=== PATIENT | female | born 1950 | race Caucasian/White ===

== ENCOUNTER 2019-02-26 10:02 | Outpatient (CLI) | payer MEDICARE ==
--- NOTE | 2019-02-26 11:37 | MRI ---
MRI LUMBAR SPINE NONCONTRAST: lumbar spine noncontrast: HISTORY: Lumbar radiculopathy. Low back pain with left leg numbness and pain. COMPARISON: None. FINDINGS: Appropriate T1 marrow signal intensity of the lumbar vertebra. Lumbar spine vertebral body height is maintained. There is no fracture. There is heterogeneous T1 and T2 signal intensity on the right aspect of the L3 vertebral body, compatible with atypical hemangioma. Hemangioma extends into the rig ht pedicle. Appropriate signal intensity of the paraspinal muscles and visualized solid organs. 1 cm left renal c yst. 0.8 cm T2 hyperintensity in the right hemipelvis, of uncertain etiology and significance. 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 Conus medullaris terminates at the T12-L1 disc space. T12-L1:Adequate disc hydration. No significant central canal stenosis or significant neural foraminal narrowing. L1-L2:Adequate disc hydration. No significant central canal stenosis or significant neural foraminal narrowing. L2-L3:Adequate disc hydration. Broad-based disc bulge without significant posterior disc abnormality. Mild ligament flavum thickening and facet hypertrophy. Minimal central canal stenosis. Mild bilateral foraminal narrowing due to disc material. L3-L4:Mild loss of disc space height. Broad-based disc bulge, ligament flavum thickening and facet hy pertrophy result in mild central canal stenosis. There is mild flattening of the ventral thecal sac. There is a T2 and STIR hyperintensity along the posterior midline annulus compatible with an zeb ular fissure. Mild right neural foraminal narrowing. Mild to moderate left neural foraminal narrowing. L4-L5:Mild loss of disc space height. Broad-based disc bulge, ligament flavum thickening and facet hy pertrophy result in mild central canal stenosis. There is a small central disc protrusion, superimposed upon the broad-based disc bulge. There is an associated T2 and STIR hyperintensity sugge sting annular fissure. Mild encroachment upon bilateral subarticular zones, without obscuration of either traversing L5 nerve root. Mild right and left foraminal narrowing. L5-S1:Severe loss of disc space height. No significant central canal stenosis. Moderate bilateral natalie ral foraminal narrowing. IMPRESSION: 1. Degenerative changes of the lumbar spine as detailed above. 2. Annular fissure at L3-L4 and L4-L5. 3. Probable hemangioma along the posterior right aspect of the L3 vertebral body with extension into the right pedicle. Transcribed Date/Time: 02/26/2019 12:04 PM
== END 2019-02-26 10:03 | disposition home or self-care (01) ==
LOC: TBSIIMAG 10:02
PROVIDERS: ATTEND Anesthesiology Pain Medicine
DX: M47.26 Other spondylosis with radiculopathy, lumbar region (principal); M51.26 Other intervertebral disc displacement, lumbar region; K60.2 Anal fissure, unspecified
CPT/HCPCS: 72148

== ENCOUNTER 2020-08-03 09:25 | Outpatient (CLI) | payer MEDICARE ==
[2020-08-03 10:44] LABS: Bilirubin Neg (Negative); Blood, Urine 25 (Negative); Clarity Clear (Clear); Glucose, Urine (Dipstick) Normal (Negative); Ketone, Urine Negative (Negative); Leukocyte Negative (Negative); Nitrite Negative (Negative); Protein, Urine (Dipstick) Negative (Neg-Trace); Urobilinogen Normal mg/dL (Less than 2)
[2020-08-03 10:48] LABS: Hemoglobin 14.2 g/dL (12.0-15.5); Mean Corpuscular HGB CONC 32.2 g/dL (32.0-36.0); Mean Corpuscular Hemoglobin 29.3 pg (27.0-33.0); Mean Corpuscular Volume 90.9 fl (81.6-98.3); Mean Platelet Volume 11.8 fl (7.4-10.4); Platelet Count 244 10x3/uL (150-450); RBC Distribution Width 12.6 % (11.5-14.5); Red Blood Cell (RBC) Count 4.85 10x6/uL (3.90-5.03); White Blood Cell (WBC) Count 5.3 10x3/uL (3.5-10.5)
[2020-08-03 11:14] LABS: Anion Gap 14 mmol/L (10-20); BUN (Urea Nitrogen) 13 mg/dL (9.8-20.1); Calc. Creatinine Clearance 0 mL/min (70-130); Calcium 9.8 mg/dL (7.8-10.44); Carbon Dioxide 28 mmol/L (23-31); Chloride 102 mmol/L (98-107); Glucose 148 mg/dL (83-110); Potassium 4.5 mmol/L (3.5-5.1); Sodium 139 mmol/L (136-145)
[2020-08-03 11:32] LABS: RBC/HPF 0-3 HPF (0-3)
[2020-08-03 11:33] LABS: Bacteria/HPF None Seen HPF (None Seen); Squamous Epithelial None Seen HPF (0-3); WBC/HPF None Seen HPF (0-3)
[2020-08-03 19:59] LABS: SARS-CoV-2 PCR by NAA Not Detected (NotDetected)
== END 2020-08-03 09:26 | disposition home or self-care (01) ==
LOC: LABBT 09:25
PROVIDERS: ATTEND Urology
DX: Z01.818 Encounter for other preprocedural examination (principal); N39.3 Stress incontinence (female) (male); N81.0 Urethrocele; Z20.822 Contact with and (suspected) exposure to COVID-19
CPT/HCPCS: 80048; 81001; 85027; 87086; 93005; U0003; U0005; 87635; 93010

== ENCOUNTER 2020-08-06 06:57 | Day surgery (SDC) | payer MEDICARE ==
[2020-08-05 11:53] VITALS: BMI 28.8
[2020-08-06] MEDS ORDERED: Fentanyl 100 MCG/2 ML VIAL ONE ×2 (07:23)
[2020-08-06] MEDS ORDERED: metroNIDAZOLE 500 MG/100 ML BAG ONE (07:54)
[2020-08-06] MEDS ORDERED: Bupivacaine 0.25% HCL 30 ML VIAL ONE (08:48)
[2020-08-06] MEDS ORDERED: Acetaminophen 500 MG TAB ONE (08:51)
[2020-08-06] MEDS ORDERED: Lidocaine 1% PF 5 ML VIAL ONE (09:38)
[2020-08-06] MEDS ORDERED: Ondansetron PF 4 MG/2 ML Vial ONE (09:38)
[2020-08-06] MEDS ORDERED: Ketorolac Tromethamine 30 MG/ML VIAL ONE (09:38)
[2020-08-06] MEDS ORDERED: PROPOFOL 200 MG/20 ML VIAL ONE (09:38)
[2020-08-06] MEDS ORDERED: Labetalol HCl 100 MG/20 ML VIAL ONE (09:38)
[2020-08-06] MEDS ORDERED: Ibuprofen 200 MG TAB PO SCH (11:45)
== END 2020-08-06 13:00 | disposition home or self-care (01) ==
LOC: SDC 06:57
PROVIDERS: ATTEND Urology
PROC: 0TSD4ZZ Reposition Urethra, Percutaneous Endoscopic Approach (ICD-10-PCS; principal; 2020-08-06)
DX: N39.3 Stress incontinence (female) (male) (principal); I10 Essential (primary) hypertension; M16.11 Unilateral primary osteoarthritis, right hip; Z79.899 Other long term (current) drug therapy; Z88.2 Allergy status to sulfonamides; Z91.018 Allergy to other foods; Z91.048 Other nonmedicinal substance allergy status
CPT/HCPCS: 57288; C1781; J0690; J1885; J2405; J2704; J3010; S0020

== ENCOUNTER 2022-12-21 05:48 | Day surgery (SDC) | payer MEDICARE ==
[2022-12-20 17:17] VITALS: BMI 25.8
[~2022-12-21 05:48] MED LIST: EPINEPHrine 0.3 MG in Ophthalmic Irrigation Solution 500 ML IRR SCH
[2022-12-21] MEDS ORDERED: PHENYLephrine 2.5% Ophth Soln 15 ml Bottle ONE ×2 (06:14→06:15)
[2022-12-21] MEDS ORDERED: Cyclopentolate 2% Opth Drop 15 ML BOT ONE (06:15)
[2022-12-21] MEDS ORDERED: fentaNYL 50 mcg/mL 1 mL Vial ONE (06:34)
[2022-12-21] MEDS ORDERED: Midazolam HCl 2 mg/2 ml Vial ONE (06:34)
[2022-12-21] MEDS ORDERED: Dexmedetomidine 200 MCG/2 ML VIAL ONE (06:35)
[2022-12-21] MEDS ORDERED: Lidocaine 4% PF 5 ML AMP ONE (07:21)
[2022-12-21] MEDS ORDERED: Triamcinolone 40 MG/ML VIAL ONE (07:21)
[2022-12-21] MEDS ORDERED: PROPOFOL 200 MG/20 ML VIAL ONE (07:21)
[2022-12-21] MEDS ORDERED: Maxitrol 0.1% Opth Oint 3.5 GM TUBE ONE (07:21)
[2022-12-21] MEDS ORDERED: Bupivacaine 0.75% 10 ML VIAL ONE (07:21)
[2022-12-21] MEDS ORDERED: Lidocaine 1% PF 5 ML VIAL ONE (07:21)
[2022-12-21] MEDS ORDERED: CEFAZOLIN 1 GM VIAL ONE (07:21)
== END 2022-12-21 08:40 | disposition home or self-care (01) ==
LOC: SDC 05:48
PROVIDERS: ATTEND Ophthalmology Retina Specialist
PROC: 08T43ZZ Resection of Right Vitreous, Percutaneous Approach (ICD-10-PCS; principal; 2022-12-21)
DX: H43.391 Other vitreous opacities, right eye (principal)
CPT/HCPCS: 67041; J3010; J0171; J0690; J2250; J2704; J3301; J3490